=== PATIENT | female | born 1940 | race Caucasian/White ===

== ENCOUNTER 2018-07-25 11:54 | Outpatient (CLI) | payer MEDICARE, OTHER ==
--- NOTE | 2018-07-25 15:30 | XRAY Report ---
Reason: RADICULOPATHY, CERVICAL,FELT POP WHILE EXERCISING Procedure Date: 07/25/2018 Accession Number: [id number] / [id number] Procedure: XR - Cervical Spine Complete CPT Code: FULL RESULT: EXAM: CERVICAL SPINE RADIOGRAPHY EXAM DATE: 07/25/2018 12:48 PM. CLINICAL HISTORY: Cervical radiculopathy, felt pop while exercising. COMPARISONS: None. TECHNIQUE: 5 views. FINDINGS: The examination is degraded by motion in essentially all projections. Alignment: There is straightening of the normal cervical curvature status-post C3-C6 fusion. Alignment of the cervical columns is preserved within the limitations of the plain radiograph series. Bones: The cervical vertebral bodies and posterior elements are well-visualized from the skull base through C7-T1. No fractures or bone lesions. Disks: Normal. Disk heights are maintained. Facets: There are expected degenerative changes in association with effusion with increased degenerative changes at C6-C7 and C2-C3 as expected. Neural Foramina: The neural foramina have bony patency bilaterally. Soft Tissues: Normal. No prevertebral soft tissue swelling. The visualized lung apices are clear. IMPRESSION: C3-C6 fusion with increased degenerative changes at the level above and below fusion. No evidence of listhesis on the limited plain radiographs. If there is high clinical suspicion for cervical injury, recommend CT cervical spine. RADIA
== END 2018-07-25 11:55 | disposition home or self-care (01) ==
LOC: DI 11:54
PROVIDERS: ATTEND Family Medicine
DX: M47.22 Other spondylosis with radiculopathy, cervical region (principal); Z98.1 Arthrodesis status
CPT/HCPCS: 72050

== ENCOUNTER 2019-09-24 08:00 | Outpatient (CLI) | payer MEDICARE, OTHER ==
[2019-09-24 12:59] LABS: ALBUMIN 3.9 g/dL (3.2-5.5); ALBUMIN/GLOBULIN RATIO 1.1 (1.0-2.2); ALKALINE PHOSPHATASE 56 IU/L (42-121); ALT ALANINE AMINOTRANSFERASE < 10 IU/L (10-60); AST ASPARTATE AMINOTRANSFERASE 17 IU/L (10-42); BILIRUBIN,TOTAL 0.5 mg/dL (0.2-1.0); BUN - BLOOD UREA NITROGEN 16 mg/dL (6-20); CALCIUM 10.2 mg/dL (8.5-10.3); CARBON DIOXIDE - CO2 29 mmol/L (21-32); CHLORIDE 105 mmol/L (101-111); CREATININE 1.2 mg/dL (0.4-1.0); GFR - MDRD 43 (>89); GLUCOSE 127 mg/dL (70-100); SODIUM 142 mmol/L (135-145); TOTAL PROTEIN 7.5 g/dL (6.7-8.2)
[2019-09-24 13:00] LABS: BASOPHILS % (AUTO) 0.5 %; EOSINOPHILS # (AUTO) 0.2 10^3/uL (0.0-0.7); HGB - HEMOGLOBIN 13.2 g/dL (12.0-16.0); LYMPHOCYTES # (AUTO) 1.4 10^3/uL (1.5-3.5); LYMPHOCYTES % (AUTO) 20.3 %; MEAN CORPUSCULAR HGB CONC 31.7 g/dL (32.0-36.0); MEAN CORPUSCULAR VOLUME 100.7 fL (81.0-99.0); MEAN PLATELET VOLUME 9.6 fL (7.9-10.8); MONOCYTES # (AUTO) 0.5 10^3/uL (0.0-1.0); MONOCYTES % (AUTO) 6.9 %; NEUTROPHILS # (AUTO) 4.6 10^3/uL (1.5-6.6); PLT - PLATELET COUNT 274 10^3/uL (130-450); RED BLOOD COUNT 4.13 10^6/uL (4.20-5.40); RED CELL DISTRIBUTION WIDTH 13.2 % (12.0-15.0); WHITE BLOOD COUNT 6.7 x10^3/uL (4.8-10.8)
[2019-09-24 13:35] LABS: BILIRUBIN,URINE NEGATIVE (NEGATIVE); GLUCOSE, URINE (UA) NEGATIVE (NEGATIVE); KETONES,URINE (UA) TRACE mg/dL (NEGATIVE); LEUKOCYTE ESTERASE, URINE NEGATIVE (NEGATIVE); NITRITE,URINE NEGATIVE (NEGATIVE); OCCULT BLOOD,URINE TRACE-INTA (NEGATIVE); PROTEIN,URINE NEGATIVE (NEGATIVE); UROBILINOGEN,URINE 0.2 (NORMAL) E.U./dL (NORMAL)
[2019-09-24 13:42] LABS: CLARITY,URINE CLEAR (CLEAR)
[2019-09-24 14:04] LABS: BACTERIA,URINE Moderate /HPF (None Seen); RBC,URINE 0-5 /HPF (0-5); SQUAMOUS EPITHELIAL CELL,UR MOD Squamous (<= Few)
[2019-09-24 14:05] LABS: CASTS, URINE 11-25 Hyaline Casts /LPF
[2019-09-26 12:11] LABS: COMPLEMENT COMPONENT C3C 132 mg/dL (83-193); COMPLEMENT COMPONENT C4C 28 mg/dL (15-57)
== END 2019-09-24 23:59 | disposition home or self-care (01) ==
LOC: LAB.WCP 08:00
PROVIDERS: ATTEND Internal Medicine Rheumatology
DX: R76.8 Other specified abnormal immunological findings in serum (principal); R27.9 Unspecified lack of coordination
CPT/HCPCS: 36415; 80053; 81001; 85025; 85651; 86160

== ENCOUNTER 2020-04-21 15:10 | Outpatient (CLI) | payer MEDICARE, OTHER ==
[2020-04-21 18:41] LABS: BASOPHILS % (AUTO) 0.4 %; EOSINOPHILS # (AUTO) 0.1 10^3/uL (0.0-0.7); EOSINOPHILS % (AUTO) 1.5 %; HGB - HEMOGLOBIN 12.9 g/dL (12.0-16.0); LYMPHOCYTES # (AUTO) 2.1 10^3/uL (1.5-3.5); MEAN CORPUSCULAR HEMOGLOBIN 32.7 pg (27.0-31.0); MEAN CORPUSCULAR HGB CONC 32.3 g/dL (32.0-36.0); MEAN CORPUSCULAR VOLUME 101.3 fL (81.0-99.0); MEAN PLATELET VOLUME 9.6 fL (7.9-10.8); MONOCYTES # (AUTO) 0.5 10^3/uL (0.0-1.0); MONOCYTES % (AUTO) 6.9 %; NEUTROPHILS # (AUTO) 4.5 10^3/uL (1.5-6.6); NEUTROPHILS % (AUTO) 61.8 %; PLT - PLATELET COUNT 301 10^3/uL (130-450); RED BLOOD COUNT 3.95 10^6/uL (4.20-5.40); RED CELL DISTRIBUTION WIDTH 13.2 % (12.0-15.0); WHITE BLOOD COUNT 7.2 x10^3/uL (4.8-10.8)
[2020-04-21 19:14] LABS: ALBUMIN 4.4 g/dL (3.2-5.5); ALBUMIN/GLOBULIN RATIO 1.5 (1.0-2.2); ALKALINE PHOSPHATASE 61 IU/L (42-121); ALT ALANINE AMINOTRANSFERASE < 10 IU/L (10-60); AST ASPARTATE AMINOTRANSFERASE 15 IU/L (10-42); BILIRUBIN,TOTAL 0.6 mg/dL (0.2-1.0); BUN - BLOOD UREA NITROGEN 21 mg/dL (6-20); CALCIUM 9.6 mg/dL (8.5-10.3); CARBON DIOXIDE - CO2 28 mmol/L (21-32); CHLORIDE 101 mmol/L (101-111); CREATININE 1.3 mg/dL (0.4-1.0); GLUCOSE 107 mg/dL (70-100); SODIUM 138 mmol/L (135-145); TOTAL PROTEIN 7.3 g/dL (6.7-8.2)
[2020-04-22 11:27] LABS: BILIRUBIN,URINE NEGATIVE (NEGATIVE); GLUCOSE, URINE (UA) NEGATIVE (NEGATIVE); KETONES,URINE (UA) NEGATIVE (NEGATIVE); LEUKOCYTE ESTERASE, URINE SMALL (NEGATIVE); NITRITE,URINE NEGATIVE (NEGATIVE); OCCULT BLOOD,URINE NEGATIVE (NEGATIVE); PROTEIN,URINE NEGATIVE (NEGATIVE); UROBILINOGEN,URINE 0.2 (NORMAL) E.U./dL (NORMAL)
[2020-04-22 11:29] LABS: CLARITY,URINE CLEAR (CLEAR)
[2020-04-22 11:58] LABS: BACTERIA,URINE Few /HPF (None Seen); CRYSTALS,URINE 11-25 Ca Oxalate /LPF; RBC,URINE 0-5 /HPF (0-5); SQUAMOUS EPITHELIAL CELL,UR FEW Squamous (<= Few)
[2020-04-23 12:06] LABS: DNA (DS) ANTIBODY 28 IU/mL
[2020-04-23 12:49] LABS: COMPLEMENT COMPONENT C3C 137 mg/dL (83-193); COMPLEMENT COMPONENT C4C 28 mg/dL (15-57)
== END 2020-04-21 23:59 | disposition home or self-care (01) ==
LOC: LAB.WCP 15:10
PROVIDERS: ATTEND Internal Medicine Rheumatology
DX: R76.0 Raised antibody titer (principal); M25.50 Pain in unspecified joint
CPT/HCPCS: 36415; 80053; 81001; 85025; 85651; 86160; 86225

== ENCOUNTER 2020-08-25 08:00 | Outpatient (CLI) | payer MEDICARE, OTHER ==
[2020-08-25 18:12] LABS: BASOPHILS % (AUTO) 0.3 %; EOSINOPHILS # (AUTO) 0.1 10^3/uL (0.0-0.7); HGB - HEMOGLOBIN 12.8 g/dL (12.0-16.0); LYMPHOCYTES # (AUTO) 1.5 10^3/uL (1.5-3.5); LYMPHOCYTES % (AUTO) 21.6 %; MEAN CORPUSCULAR HEMOGLOBIN 31.9 pg (27.0-31.0); MEAN CORPUSCULAR HGB CONC 31.2 g/dL (32.0-36.0); MEAN CORPUSCULAR VOLUME 102.2 fL (81.0-99.0); MEAN PLATELET VOLUME 9.6 fL (7.9-10.8); MONOCYTES # (AUTO) 0.5 10^3/uL (0.0-1.0); MONOCYTES % (AUTO) 7.6 %; NEUTROPHILS # (AUTO) 4.7 10^3/uL (1.5-6.6); NEUTROPHILS % (AUTO) 69.1 %; PLT - PLATELET COUNT 276 10^3/uL (130-450); RED BLOOD COUNT 4.01 10^6/uL (4.20-5.40); RED CELL DISTRIBUTION WIDTH 12.8 % (12.0-15.0); WHITE BLOOD COUNT 6.9 x10^3/uL (4.8-10.8)
[2020-08-25 18:20] LABS: CALCIUM 9.6 mg/dL (8.5-10.3); CREATININE 1.3 mg/dL (0.4-1.0)
[2020-08-25 19:05] LABS: BILIRUBIN,URINE NEGATIVE (NEGATIVE); GLUCOSE, URINE (UA) NEGATIVE (NEGATIVE); KETONES,URINE (UA) NEGATIVE (NEGATIVE); LEUKOCYTE ESTERASE, URINE NEGATIVE (NEGATIVE); NITRITE,URINE NEGATIVE (NEGATIVE); OCCULT BLOOD,URINE NEGATIVE (NEGATIVE); PROTEIN,URINE NEGATIVE (NEGATIVE); UROBILINOGEN,URINE 0.2 (NORMAL) E.U./dL (NORMAL)
[2020-08-25 19:29] LABS: CLARITY,URINE CLEAR (CLEAR)
[2020-08-25 19:30] LABS: BACTERIA,URINE None Seen /HPF (None Seen); RBC,URINE None Seen /HPF (0-5); SQUAMOUS EPITHELIAL CELL,UR RARE Squamous (<= Few)
[2020-08-27 11:16] LABS: COMPLEMENT COMPONENT C3C 153 mg/dL (83-193); COMPLEMENT COMPONENT C4C 35 mg/dL (15-57)
== END 2020-08-25 23:59 | disposition home or self-care (01) ==
LOC: LAB.WCP 08:00
PROVIDERS: ATTEND Internal Medicine Rheumatology
DX: R27.9 Unspecified lack of coordination (principal); R76.8 Other specified abnormal immunological findings in serum
CPT/HCPCS: 36415; 80048; 81001; 85025; 85651; 86160

== ENCOUNTER 2021-02-15 18:32 | Outpatient (CLI) | payer MEDICARE, OTHER ==
--- NOTE | 2021-02-15 19:49 | Ultrasound Report ---
PROCEDURE: Duplex Ext Veins Bilateral INDICATIONS: PHUC AJ TECHNIQUE: Real-time imaging, as well as color and pulse Doppler interrogation, were performed of the deep veins of both legs from the inguinal ligament to the popliteal fossa. COMPARISON: None FINDINGS: The deep veins are normally compressible, and free of intraluminal thrombus. Color and pu lse Doppler demonstrate normal phasic intravascular flow. There is normal augmentation response to d istal compression maneuver. There is a 4.6 x 1 x 3.8 cm fluid collection along anterior aspect of right knee joint. 1.3 x 0.9 x 4 .3 cm fluid collection is noted in left popliteal fossa. IMPRESSION: 1. No evidence of DVT in visualized bilateral lower extremity veins. 2. Fluid collection seen in anterior aspect of right knee joint which may represent prepatellar bursi tis. 3. Suggestion of a small left popliteal cyst as above. Reviewed by: James Ho MD on 02/15/2021 7:47 PM PDT Approved by: James Ho MD on 02/15/2021 7:47 PM PDT Station ID: [id number]
== END 2021-02-15 18:33 | disposition home or self-care (01) ==
LOC: DI 18:32
PROVIDERS: ATTEND Internal Medicine Rheumatology
DX: M79.604 Pain in right leg (principal); M79.605 Pain in left leg
CPT/HCPCS: 93970

== ENCOUNTER 2022-09-19 13:11 | Outpatient (CLI) | payer MEDICARE, OTHER | END 2022-09-19 23:59 | disposition critical access hospital (66) | LOC: EMS 13:11 | DX: R07.9 Chest pain, unspecified (principal); M54.2 Cervicalgia; M54.9 Dorsalgia, unspecified; M79.602 Pain in left arm | CPT/HCPCS: A0425; A0427 ==

== ENCOUNTER 2022-09-19 13:27 | Emergency (ER) | payer MEDICARE, OTHER ==
--- NOTE | 2022-09-19 13:35 | ED Physician Documentation ---
PD HPI CHEST PAIN - Stated complaint Stated Complaint: CHEST PAIN - History obtained from History obtained from: Patient - History of Present Illness Timing - onset: Yesterday (onset about 30 hours ago and has hd pain to some degree since.) Timing - duration: Days (10/16) Timing - details: Gradual onset, Still present, Waxing and waning. No: Intermittant Quality: Aching, Pain Location: Right chest, Upper back Radiation: No: Neck, Back Improved by: Rest Worsened by: Movement. No: Inspiration, Eating, Palpation Associated symptoms: No: Shortness of air, Diaphoresis, Nausea Similar symptoms before: Has not had sx before Review of Systems Constitutional: denies: Fever, Chills Nose: denies: Rhinorrhea / runny nose, Congestion Throat: denies: Sore throat Respiratory: denies: Cough GI: denies: Abdominal Pain, Nausea, Vomiting, Diarrhea Skin: denies: Rash, Lesions PD PAST MEDICAL HISTORY - Past Medical History Cardiovascular: Hypertension, High cholesterol, Angina, [place] Respiratory: Asthma, Sleep apnea, CPAP use Endocrine/Autoimmune: None, Type 2 diabetes, HyPOthyroidism GI: GERD : Frequency HEENT: Chronic vision loss Psych: Depression, Anxiety, Panic attacks Musculoskeletal: Osteoarthritis Derm: None - Past Surgical History Past Surgical History: Yes General: Cholecystectomy Ortho: Other HEENT: Cataracts, Tonsil/Adenoidectomy - Present Medications Home Medications: Ambulatory Orders Medication Instructions Recorded Confirmed Aspirin Chewable [[place] 81 mg PO DAILY 01/03/14 01/03/14 Aspirin] Levothyroxine Sodium [Synthroid] 88 mcg PO 01/03/14 01/03/14 Lisinopril 20 mg PO 01/03/14 01/03/14 Rosuvastatin Calcium [Crestor] 10 mg PO 01/03/14 01/03/14 Bupropion HCl [Bupropion HCl Sr] 150 mg PO BID 01/04/14 01/04/14 - Allergies Allergies/Adverse Reactions: Allergies Allergy/AdvReac Type Severity Reaction Status Date / Time Sulfa (Sulfonamide AdvReac Unknown Rash Verified 09/19/22 13:39 Antibiotics) - Social History Does the pt smoke?: No Smoking Status: Former smoker Does the pt drink ETOH?: No Does the pt have substance abuse?: No - Immunizations Immunizations are current?: Yes - POLST Patient has POLST: No PD ED PE NORMAL - Vitals Vital signs reviewed: Yes - General General: Alert and oriented X 3 - HEENT HEENT: Pharynx benign - Neck Neck: Supple, no meningeal sign, No adenopathy - Cardiac Cardiac: RRR, No murmur, Other (chest tender in right pectoral area. back in trapezius muscles. no rash nor sores. ) - Respiratory Respiratory: Clear bilaterally - Abdomen Abdomen: Soft, Non tender - Derm Derm: Normal color, Warm and dry - Extremities Extremities: No edema, No calf tenderness / cord - Neuro Neuro: Alert and oriented X 3, No motor deficit, Normal speech Results - Vitals Vitals: Oxygen O2 Source Room air - EKG (time done) 14;27 Rate: Rate (enter#) (86) Rhythm: NSR [place]: Normal Intervals: Normal [place] QRS: Normal Ischemia: Normal ST segments. No: ST elevation c/w ischemia, ST depression - Labs Labs: Laboratory Tests 09/19/22 09/19/22 09/19/22 13:46 13:46 13:46 WBC 7.3 RBC 4.40 Hgb 13.6 Hct 42.1 MCV 95.7 MCH 30.9 MCHC 32.3 RDW 12.6 Plt Count 256 MPV 8.9 Neut # (Auto) 5.1 Lymph # (Auto) 1.5 [place] # (Auto) 0.6 Eos # (Auto) 0.1 Baso # (Auto) 0.0 Absolute Nucleated RBC 0.00 Nucleated RBC % 0.0 Sodium 137 Potassium 4.1 Chloride 97 L Carbon Dioxide 26 Anion Gap 14.0 H BUN 21 H Creatinine 1.3 H Estimated GFR (MDRD) 39 L Glucose 128 H Calcium 9.6 Total Bilirubin 0.4 AST 18 ALT < 10 L Alkaline Phosphatase 68 Troponin I High Sens 15.9 H* Total Protein 7.4 Albumin 4.0 Globulin 3.4 Albumin/Globulin Ratio 1.2 Lipase 33 Nasal Adenovirus (PCR) Nasal B. parapertussis DNA (PCR) Nasal Coronavir 229E PCR Nasal Coronavir HKU1 PCR Nasal Coronavir NL63 PCR Nasal Coronavir OC43 PCR Nasal Enterovir/Rhinovir PCR Nasal Influenza B PCR Nasal Influenza A PCR Nasal Parainfluen 1 PCR Nasal Parainfluen 2 PCR Nasal Parainfluen 3 PCR Nasal Parainfluen 4 PCR Nasal RSV (PCR) Nasal B.pertussis DNA PCR Nasal C.pneumoniae (PCR) Kush Human Metapneumo PCR Nasal M.pneumoniae (PCR) Nasal SARS-CoV-2 (PCR) 09/19/22 15:20 WBC RBC Hgb Hct MCV MCH MCHC RDW Plt Count MPV Neut # (Auto) Lymph # (Auto) [place] # (Auto) Eos # (Auto) Baso # (Auto) Absolute Nucleated RBC Nucleated RBC % Sodium Potassium Chloride Carbon Dioxide Anion Gap BUN Creatinine Estimated GFR (MDRD) Glucose Calcium Total Bilirubin AST ALT Alkaline Phosphatase Troponin I High Sens Total Protein Albumin Globulin Albumin/Globulin Ratio Lipase Nasal Adenovirus (PCR) NOT DETECTED Nasal B. parapertussis DNA (PCR) NOT DETECTED Nasal Coronavir 229E PCR NOT DETECTED Nasal Coronavir HKU1 PCR NOT DETECTED Nasal Coronavir NL63 PCR NOT DETECTED Nasal Coronavir OC43 PCR NOT DETECTED Nasal Enterovir/Rhinovir PCR NOT DETECTED Nasal Influenza B PCR NOT DETECTED Nasal Influenza A PCR NOT DETECTED Nasal Parainfluen 1 PCR NOT DETECTED Nasal Parainfluen 2 PCR NOT DETECTED Nasal Parainfluen 3 PCR NOT DETECTED Nasal Parainfluen 4 PCR NOT DETECTED Nasal RSV (PCR) NOT DETECTED Nasal B.pertussis DNA PCR NOT DETECTED Nasal C.pneumoniae (PCR) NOT DETECTED Kush Human Metapneumo PCR NOT DETECTED Nasal M.pneumoniae (PCR) NOT DETECTED Nasal SARS-CoV-2 (PCR) NOT DETECTED - Rads (name of study) chest Radiology: Prelim report reviewed (no acute process), See rad report PD MEDICAL DECISION MAKING - ED course Complexity details: reviewed results, considered differential (seems more like muscle aches of chest and upper back. ), d/w patient Departure - Departure Disposition: 01 Home, Self Care Clinical Impression: Myalgia Chest pain Qualifiers: Chest pain type: precordial pain Qualified Code(s): R07.2 - Precordial pain Condition: Stable Record reviewed to determine appropriate education?: Yes Instructions: ED Chest Pain Atypical Unkn Cause Comments: Your EKG, chest x-ray, blood test including troponin which looks for heart muscle injury, are all normal. No signs of heart attack, anemia, electrolyte problems, pneumonia, heart failure. We did do a viral panel screening test as your symptoms may be early signs of a flulike illness. That will result in a couple of hours and we can call you with the results. Meanwhile I would suggest using medication such as ibuprofen or naproxen 2-3 times daily with food for the next 3 to 5 days. Add Tylenol if needed for aches and pains. See if any symptoms evolve over the next couple of days such as cough fever chills that may make it more evident. Follow-up with your primary care if persistent pains or trouble breathing not improved over the next 3 to 5 days. Return sooner if worse. Discharge Date/Time: 09/19/22 16:40
[2022-09-19 13:52] LABS: BASOPHILS % (AUTO) 0.4 %; EOSINOPHILS # (AUTO) 0.1 10^3/uL (0.0-0.7); EOSINOPHILS % (AUTO) 1.6 %; HCT - HEMATOCRIT 42.1 % (37.0-47.0); HGB - HEMOGLOBIN 13.6 g/dL (12.0-16.0); LYMPHOCYTES # (AUTO) 1.5 10^3/uL (1.5-3.5); MEAN CORPUSCULAR HEMOGLOBIN 30.9 pg (27.0-31.0); MEAN CORPUSCULAR HGB CONC 32.3 g/dL (32.0-36.0); MEAN CORPUSCULAR VOLUME 95.7 fL (81.0-99.0); MEAN PLATELET VOLUME 8.9 fL (7.9-10.8); MONOCYTES # (AUTO) 0.6 10^3/uL (0.0-1.0); MONOCYTES % (AUTO) 7.7 %; NEUTROPHILS # (AUTO) 5.1 10^3/uL (1.5-6.6); NEUTROPHILS % (AUTO) 69.8 %; PLT - PLATELET COUNT 256 10^3/uL (130-450); RED CELL DISTRIBUTION WIDTH 12.6 % (12.0-15.0); WHITE BLOOD COUNT 7.3 x10^3/uL (4.8-10.8)
--- NOTE | 2022-09-19 13:59 | XRAY Report ---
PROCEDURE: Chest 1 View X-Ray INDICATIONS: Chest pain TECHNIQUE: One view of the chest was acquired. COMPARISON: None. FINDINGS: Surgical changes and devices: None. Lungs and pleura: No pleural effusions or pneumothorax. Lungs are clear. Mediastinum: Mediastinal contours appear normal. Heart size is enlarged. Bones and chest wall: No suspicious bony lesions. Overlying soft tissues appear unremarkable. Dege nerative changes of the left shoulder. IMPRESSION: No acute cardiopulmonary abnormality. Reviewed by: Petr Holden on 09/19/2022 1:58 PM [facility] Approved by: Petr Holden on 09/19/2022 1:58 PM [facility] Station ID: [id number]
[2022-09-19] MEDS ORDERED: KETOROLAC 15 MG/ML VIAL IVP STA (14:11)
[2022-09-19] MEDS ORDERED: MAG HYDROX/AL HYDROX/SIMETH 30 ML UDC PO STA (14:11)
[2022-09-19 14:13] LABS: ALBUMIN/GLOBULIN RATIO 1.2 (1.0-2.2); ALKALINE PHOSPHATASE 68 IU/L (42-121); ALT ALANINE AMINOTRANSFERASE < 10 IU/L (10-60); AST ASPARTATE AMINOTRANSFERASE 18 IU/L (10-42); BILIRUBIN,TOTAL 0.4 mg/dL (0.2-1.0); BUN - BLOOD UREA NITROGEN 21 mg/dL (6-20); CALCIUM 9.6 mg/dL (8.5-10.3); CARBON DIOXIDE - CO2 26 mmol/L (21-32); CHLORIDE 97 mmol/L (101-111); CREATININE 1.3 mg/dL (0.4-1.0); GFR - MDRD 39 (>89); GLUCOSE 128 mg/dL (70-100); LIPASE 33 U/L (22-51); POTASSIUM 4.1 mmol/L (3.5-5.0); SODIUM 137 mmol/L (135-145); TOTAL PROTEIN 7.4 g/dL (6.7-8.2)
[2022-09-19] MEDS ORDERED: HYDROmorphone 0.5 MG/0.5 ML SYRINGE IVP STA (15:27)
[2022-09-19 16:36] LABS: B. PARAPERTUSSIS- RESP PCR PAN NOT DETECTED; B. PERTUSSIS- RESP PCR PANEL NOT DETECTED; C. PNEUMONIAE- RESP PCR PANEL NOT DETECTED; CORONAVIRUS 229E-RESP PCR NOT DETECTED; CORONAVIRUS HKU1-RESP PCR NOT DETECTED; CORONAVIRUS NL63-RESP PCR NOT DETECTED; CORONAVIRUS OC43-RESP PCR NOT DETECTED; HUMAN METAPNEUMOVIRUS NOT DETECTED; INFLUENZA A- RESP PCR PANEL NOT DETECTED; INFLUENZA B - RESP PCR PANEL NOT DETECTED; M. PNEUMONIAE- RESP PCR PANEL NOT DETECTED; PARAINFLUENZA VIRUS 1 NOT DETECTED; PARAINFLUENZA VIRUS 2 NOT DETECTED; PARAINFLUENZA VIRUS 3 NOT DETECTED; PARAINFLUENZA VIRUS 4 NOT DETECTED; RHINOVIRUS/ENTEROVIRUS NOT DETECTED; RSV- RESP PCR PANEL NOT DETECTED; SARS-CoV-2 -RESP PCR PANEL NOT DETECTED
[2022-09-19 16:40] VITALS: BP 148/84
== END 2022-09-19 16:40 | disposition home or self-care (01) ==
LOC: EDUNIT# → ED 13:27
DX: R07.2 Precordial pain (principal); M79.10 Myalgia, unspecified site; Z87.891 Personal history of nicotine dependence; Z20.822 Contact with and (suspected) exposure to COVID-19
CPT/HCPCS: 36415; 71045; 80053; 83690; 84484; 85025; 87633; 93005; 96374; 96375; 99284; A9270; J1170

== ENCOUNTER 2022-10-30 12:35 | Outpatient (CLI) | payer MEDICARE, OTHER ==
--- NOTE | 2022-10-30 15:28 | DEXA Report ---
PROCEDURE: Dexa Spine and/or Hip INDICATIONS: POST MENOPAUSAL TECHNIQUE: Dual energy x-ray absorptiometry (DXA) was performed on a [employer] System. Regions measur ed are the AP Spine, femoral neck, and if needed forearm. COMPARISON: None. FINDINGS: Lumbar Spine: Bone Mineral Density 1.13 g/cm/cm,T score -0.5, Spinal curvature is present. Left Femoral Neck: Bone Mineral Density 0.85 g/cm/cm, T score -1.3, Left Hip: Bone Mineral Density 1.03 g/cm/cm,T score 0.1, (T score greater or equal to -1.0: NORMAL) (T score from -1.1 to -2.4: OSTEOPENIA) (T score less than or equal to -2.5 to: OSTEOPOROSIS) Impression: Osteopenia of the left femoral neck. Normal bone mineral density in the lumbar spine and left hip as a whole. Patients with diagnosis of osteoporosis or osteopenia should have regular bone mineral density assess ment. For those eligible for Medicare, routine testing is allowed once every 2 years. Testing frequ ency can be increased for patients who have rapidly progressing disease or for those who are receivin g medical therapy to restore bone mass. Reviewed by: Darrell Davenport MD on 10/30/2022 3:27 PM PST Approved by: Darrell Davenport MD on 10/30/2022 3:27 PM PST Station ID: [id number]
== END 2022-10-30 12:36 | disposition home or self-care (01) ==
LOC: DI 12:35
PROVIDERS: ATTEND Physician Assistant
DX: M85.88 Other specified disorders of bone density and structure, other site (principal)

== ENCOUNTER 2023-03-30 13:44 | Outpatient (CLI) | payer MEDICARE, OTHER ==
--- NOTE | 2023-03-30 14:45 | SLEEP CARE CONSULTATION ---
Information from patient questionnaire entered by Rhona Syed. I have reviewed and concur with the information entered by Rhona Syed. This document represents the service I personally performed and the decisions made by me, Verona Sanchez ARNP. History of Present Illness Service Date and Time: 03/30/2023 1344 Reason for Visit: New patient Chief Complaint: reports: Unrefreshed sleep, Snoring, Observed pauses in breathing, Frequent awakenings at night, Other (update supplies) Date of Onset: 20+ years Usual bedtime: 10 PM Time it takes to fall asleep: 15-40 mins Snores at night: Yes Observed to quit breathing while asleep: Yes Number of times waking at night: 3-4 Reasons for waking at night: reports: Bathroom Toss, Turn, or Twitch while sleeping: Yes Recalls having dreams: Yes Usually gets out of bed at: 0630 Feels refreshed in the morning: No Morning headache: No Sleepy or fatigued during the day: Yes Ever fallen asleep while driving: No Takes day naps: No Prior sleep studies: Yes Year and Where: [facility] [place] ?date Additional HPI information: ANISA CADENA was previously diagnosed to have unknown, AHI unknown, sleep apnea-hypopnea syndrome and comes in today for BIPAP therapy. She has a Dreamstation BiPAP that is on the [employer] recall and has received a letter asking for prescription data from her doctor to obtain her replacement. She wants to get a replacement so she can restart use of her BIPAP. - Parasomnia Symptoms Ever been unable to move upon waking from sleep: No Walks in sleep: Yes Talks in sleep: Yes Ever acted out dreams in sleep: No Ever felt weak in the knees when startled or emotional: No Bothered by creepy, crawly, restless sensations in legs: Yes Problems with memory or concentration: Yes CPAP Compliance Data - Data Reviewed with Patient Average duration of nightly device use: 7 hours 7 mins Compliance rate %: 69.2 (144/185 days used; dates 04-23-2021 to10-24-2021) Current pressure setting (cmH2O): 9/5 with 4 pressure support Average residual AHI: 3.2 Central apnea: 0.2 Obstructive apnea: 1.1 Hypopnea: 1.9 Average large leak: 8 mins 59 secs Compliance data discussion: She has a recalled Neal Dreamstation BiPAP. She was using a Dreamwear nasal cushion. She does not remember who she was getting supplies from and has moved too. Subjective Patient concerns: denies: aerophagia, mask discomfort, air blowing in eyes, mask leak noise, condensation in mask/hose, nasal congestion, dry mouth, nose, throat, epistaxis Observed to snore while using device: No Current pressure setting perceived as: comfortable On therapy, patient: reports: sleeping better, awakening more refreshed, being more awake and alert during the day, more rested overall. denies: drowsiness while driving Initial [place] Sleepiness Scale score: 5 (03/30/2023) Past Medical History Past Medical History: reports: Hypertension, Claustrophobia, Diabetes, Arthritis, Anxiety, Depression, Other (Parkinson's) Social History The patient's occupation is a RE. Patient is / and lives in . Have you smoked in the past 12 months: No Alcohol use: No Caffeine use: Yes Caffeine amount and frequency: 1 cup coffee at lunch Family History Family history of sleep disordered breathing: No Allergies and Home Medications Known drug allergies: Yes (sulfa, -statins, amoxicillin) Drug allergies reviewed: Yes Home medication list reviewed: Yes Allergy and home medication list: Allergies Sulfa (Sulfonamide Antibiotics) Adverse Reaction (Unknown, Verified 03/29/23 20:22) Rash Medications: Carbidopa-Levodopa 25-100 mg Bupropion Synthroid new blood pressure medication, don't know name Review of Systems Weight gain over past 5 years: 25 Cardiovascular: reports: high blood pressure, leg or foot swelling Respiratory: denies: shortness of breath Gastrointestinal: reports: difficulty swallowing (had barium swallow test last week) Urinary: reports: frequency Neurological: reports: disorientation, gait or balance problems. denies: headaches Psychiatric: reports: anxiety, depression Ear/Nose/Throat: reports: sinus problems, dry mouth/throat, hoarseness, tonsillectomy, wisdom teeth removed Endocrine: reports: thyroid disease, sluggishness Musculoskeletal: reports: joint pain, neck pain, back pain, mobility problems Immunologic: reports: sneezing, rash Physical Exam Vital signs obtained and entered by: Verona Matta NP Blood Pressure: 173/95 Cuff size: wrist (right) Heart Rate: 84 O2 Saturation: 100 Height: 5 ft 1 in Weight: 172 lb 12.8 oz Body Mass Index: 32.6 BMI Classification: Obese Heart: regular rate and rhythm Lungs: clear bilaterally Impression and Plan 1. Obstructive Sleep Apnea-Hypopnea Syndrome, unknown, with no treatment compliance and good apnea control. On BIPAP therapy, the patient has better sleep quality and is more rested overall. Patient has been unable to use her BiPAP because it is on the recall and she did not feel comfortable using it. The last time she used it was at the beginning of 2021. She has received some information from [employer] requesting an updated prescription from her provider and other information needed to get her a new device. We will try to facilitate getting her a new device through [employer] since she is not eligible for new one for 2 more years. We are also trying to get a copy of her last sleep study to verify her diagnosis and severity. If we are unable to do this I will have her do a sleep study to verify. She voiced understanding and agreement with this plan of care. Patient's apnea severity and rationale for treatment to reduce apnea, improve sleep quality and reduce cardiovascular and cerebrovascular events was reviewed. I also reviewed the benefit of consistent device use of BIPAP for hypertension, diabetes, depression/anxiety and Parkinson's disease. 2. Elevated blood pressure in patient with hypertension. Her blood pressure was elevated at 173/95 in the office today. She states it has been high and she is waiting on new medication to come in the mail prescribed by her primary provider. She denied shortness of breath, chest pain, headaches or dizziness. She is feeling well. * Continue BIPAP pressure at 9/5 cmH2O with 4 cmH2O pressure support * Obtain records of last sleep study; order PSG/HST if unable to obtain the records * Transfer DME * Update prescription for supplies * Notify me if snoring with mask or feeling that the pressure is too much or too little * Attempt to lose weight * Call this office if any problems using BIPAP * Return for follow up once she has a replaced machine or after sleep study if needed, or sooner if concerns arise Counseling Topics: Weight loss health impact Prescriptions: Device supplies Visit Type: In Office Time Spent with Patient (minutes): 44 Provider Statement: I spent 100% of the Face to Face Visit with the patient with greater than 50% spent counseling the patient and coordination of care.
[2023-03-30 14:47] VITALS: BP 173/95
== END 2023-03-30 13:45 | disposition home or self-care (01) ==
LOC: SC 13:44
PROVIDERS: ATTEND Nurse Practitioner Family
DX: G47.33 Obstructive sleep apnea (adult) (pediatric) (principal); I10 Essential (primary) hypertension; E66.9 Obesity, unspecified; Z68.32 Body mass index [BMI] 32.0-32.9, adult
CPT/HCPCS: 99203; G0463; 99212

== ENCOUNTER 2023-12-06 13:16 | Outpatient (CLI) | payer MEDICARE, OTHER ==
--- NOTE | 2023-12-06 16:35 | XRAY Report ---
PROCEDURE: Chest 2V INDICATIONS: SHORTNESS OF BREATH TECHNIQUE: 2 views of the chest were acquired. COMPARISON: Radiographs 09/19/2022. FINDINGS: Surgical changes and devices: Right upper quadrant cholecystectomy clips. Lungs and pleura: No pleural effusions or pneumothorax. Lungs are clear. Mediastinum: Mediastinal contours appear normal. Heart size is normal. Bones and chest wall: Scoliotic curvature is seen in the spine. IMPRESSION: No acute cardiopulmonary process. Reviewed by: Sourav Kimbrough MD on 12/06/2023 4:34 PM PST Approved by: Sourav Kimbrough MD on 12/06/2023 4:34 PM PST Station ID: [id number]
== END 2023-12-06 13:17 | disposition home or self-care (01) ==
LOC: DI.N 13:16
PROVIDERS: ATTEND Physician Assistant
DX: R06.02 Shortness of breath (principal)

== ENCOUNTER 2023-12-14 14:23 | Outpatient (CLI) | payer MEDICARE, OTHER ==
--- NOTE | 2023-12-14 14:48 | Sleep Patient Instructions ---
Sleep Center Visit Summary - Patient Visit Information Reason for Visit: Annual Followup - Patient Instructions Additional Instructions: You will be completing a sleep study, either an in-lab polysomnography (PSG) or home sleep study (HST). You will follow-up in the sleep care office after the sleep study is completed to hear the results and talk about therapy, if needed. You will be called by our office staff to schedule this appointment, but you may contact us with any questions. - Clinic Information Contact: [facility] [address] [place] [address] [email or web address] T: [phone]
--- NOTE | 2023-12-14 14:56 | SLEEP CARE CONSULTATION ---
Information from patient questionnaire entered by Rhona Syed. I have reviewed and concur with the information entered by Rhona Syed. This document represents the service I personally performed and the decisions made by me, Verona Sanchez ARNP. History of Present Illness Service Date and Time: 12/14/2023 1423 Previous diagnosis: Mild, Obstructive Sleep Apnea-Hypopnea Syndrome AHI: 7.9 (in 08/13/2012) Reason for follow up: other (LAST SEEN 03/2023 NEVER GOT MACHINE) Equipment type: BiPAP (9/5 cmH2O with 4 cmH2O pressure support for last settings) Mask style: Nasal Prior sleep studies: Yes Year and Where: [facility] ?date HPI additional information: ANISA CADENA was diagnosed to have mild, AHI 7.9, obstructive sleep apnea- hypopnea syndrome and returned today for BIPAP therapy annual follow-up. Sleep Study - Results Prior sleep studies: Yes Year and Where: [facility] ?date CPAP Compliance Data Compliance data discussion: Currently not using her BiPAP because it has been on recall. Subjective Initial [place] Sleepiness Scale score: 5 (03/30/2023) Current [place] Sleepiness Scale score: 7 (12/14/23) Allergies and Home Medications Known drug allergies: Yes (as listed) Drug allergies reviewed: Yes Home medication list reviewed: Yes (no changes) Allergy and home medication list: Allergies amoxicillin Allergy (Verified 12/12/23 12:08) Hives [id number]-MqD Reductase Inhibitor Allergy (Verified 12/12/23 12:08) Hives Sulfa (Sulfonamide Antibiotics) Adverse Reaction (Unknown, Verified 12/12/23 12:08) Rash Review of Systems Review of systems same as previous: Yes (NO CHANGE) Physical Exam Vital signs obtained and entered by: RHONA Lawler MA Blood Pressure: 146/82 (LEFT ARM) Cuff size: regular Heart Rate: 84 O2 Saturation: 98 Height: 5 ft 1 in Weight: 173 lb 9.6 oz Body Mass Index: 32.8 BMI Classification: Obese Impression and Plan 1. Obstructive Sleep Apnea-Hypopnea Syndrome, mild. Patient did receive a replacement device from [employer] but she was only sent part of the machine. She did not get a water chamber or electrical cord. She has not been able to resolve getting the rest of the machine. On BiPAP therapy, the patient has better sleep quality and is more rested overall. She has had a recalled BiPAP and is not able to use it. She recently had a older model of the Neal machines and nothing is interchangeable with this Dreamstation. After some discussion, she has not been using her machine for 1 to 2 years now and her last sleep study was done back in 2011. I think it would be advisable to get a new baseline so that we know what would be options for her to control her sleep apnea. She is hoping to see other options besides the BiPAP machine. I will order a new sleep study and we will follow-up after her sleep study to discuss the options that she will have for treatment. She voiced understanding and agreement with this plan of care. Patient's apnea severity and rationale for treatment to reduce apnea, improve sleep quality and reduce cardiovascular and cerebrovascular events was reviewed. I also reviewed the benefit of consistent device use of BIPAP for hypertension, diabetes, depression/anxiety. 2. Obesity, unspecified. Currently patients BMI is 32.8. Obesity increases the risk of apnea, BiPAP pressure requirements and overall health risks especially cardiovascular and diabetes. Thus patient is advised to lose weight. * Schedule polysomnography to obtain new baseline for her sleep apnea. * Avoid long distance driving or driving when feeling sleepy. * Avoid alcohol, sedative and muscle relaxant around bedtime. * Attempt to lose weight. * Review instructions provided by trained office staff on how to prepare for the sleep study. * Return for follow-up after sleep study completed. Counseling Topics: Weight loss health impact Follow up with Sleep Care in: other (after sleep study) Plan: PSG Visit Type: In Office Time Spent with Patient (minutes): 25 Provider Statement: I spent 100% of the Face to Face Visit with the patient with greater than 50% spent counseling the patient and coordination of care.
[2023-12-14 15:12] VITALS: BP 146/82; O2SAT 98
== END 2023-12-14 14:24 | disposition home or self-care (01) ==
LOC: SC 14:23
PROVIDERS: ATTEND Nurse Practitioner Family
DX: G47.33 Obstructive sleep apnea (adult) (pediatric) (principal); E66.9 Obesity, unspecified; Z68.32 Body mass index [BMI] 32.0-32.9, adult
CPT/HCPCS: 99213; G0463; 99212

== ENCOUNTER 2024-01-06 19:36 | Outpatient (CLI) | payer MEDICARE, OTHER | END 2024-01-06 19:37 | disposition home or self-care (01) | LOC: SC 19:36 | PROVIDERS: ATTEND Nurse Practitioner Family | DX: G47.33 Obstructive sleep apnea (adult) (pediatric) (principal); E11.9 Type 2 diabetes mellitus without complications; F32.A Depression, unspecified; I10 Essential (primary) hypertension | CPT/HCPCS: 95810 ==

== ENCOUNTER 2024-01-15 15:16 | Outpatient (CLI) | payer MEDICARE, OTHER ==
--- NOTE | 2024-01-15 16:27 | Sleep Patient Instructions ---
Sleep Center Visit Summary - Patient Visit Information Reason for Visit: Sleep study follow-up - Patient Instructions Additional Instructions: You were here for follow up of recent sleep study that you completed which showed mild obstructive sleep apnea. You will be continued on BiPAP therapy with pressure at 9/5 cmH2O. I have ordered a new BiPAP and they company you choose for your supplies and machine should be reaching out to you to get it set up. Please call us once you get the machine at home to set up a compliance followup for a month after using your new machine. You should follow up with sleep care one month after getting machine. You may contact us sooner for any questions or concerns. - Clinic Information Contact: [facility] [address] [place] [address] [email or web address] T: [phone]
--- NOTE | 2024-01-15 16:33 | SLEEP CARE CONSULTATION ---
Information from patient questionnaire entered by Rhona Syed. I have reviewed and concur with the information entered by Rhona Syed. This document represents the service I personally performed and the decisions made by , Verona Sanchez ARNP. History of Present Illness Service Date and Time: 01/15/2024 1516 Initial [place] Sleepiness Scale score: 5 (03/30/2023) Current [place] Sleepiness Scale score: 8 Additional HPI information: ANISA CADENA returns for follow up and results of the recently performed polysomnography. The sleep study showed mild obstructive sleep apnea with an average AHI of 8.7 and caty oxygen saturation of 89%. I explained the pathophysiology behind obstructive sleep apnea. We then spent quite a bit of time discussing different treatment options. For mild obstructive sleep apnea, surgery and oral appliance are alternatives to nasal CPAP therapy but in moderate or severe cases, nasal CPAP is the most effective and reliable treatment. Because apnea is primarily in non-supine position, then positional management therapy could be effective. Methods discussed. I reviewed the impact of weight changes on sleep apnea and strongly recommended losing weight. After some discussion, the patient would like to continue with the BiPAP therapy set at 9/5 cmH2O with 4 cmH20 pressure support. Patient does not drink alcohol. Patient was cautioned about risks of drowsy driving until sleepiness symptoms resolve. Patient denies drowsy driving. Sleep Study - Results Type of Sleep Study: Polysomnography (COMPLETED 01/06/24) Prior sleep studies: Yes Year and Where: [facility] ?date Polysomnography/Home Sleep Study results: IMPRESSION: The quality of the study is good. The patient had reduced sleep efficiency due to prolonged awakenings in the middle of the night. The sleep architecture was abnormal for sleep fragmentation and reduced amount of time spent in REM and slow wave sleep (N3). Respiratory monitoring showed mild obstructive sleep apnea-hypopnea (AHI = 8.7) associated with frequent arousals, oxyhemoglobin desaturation and minimal hypoxia (caty oxygen saturation of 89%). The patient slept mostly in non-supine positions (supine AHI = 2.9; non-supine = 10.49). Snore was light in intensity. There was no significant periodic leg movement of sleep. Cardiac rhythm was normal sinus rhythm without significant arrhythmia. No abnormal behavior (parasomnia) observed during the night. Allergies and Home Medications Known drug allergies: Yes (as listed) Drug allergies reviewed: Yes Home medication list reviewed: Yes (no changes) Allergy and home medication list: Allergies amoxicillin Allergy (Verified 12/14/23 14:26) Hives Ihosfup-BSX-BlX Reductase Inhibitor Allergy (Verified 12/14/23 14:26) Hives Sulfa (Sulfonamide Antibiotics) Adverse Reaction (Unknown, Verified 12/14/23 14:26) Rash Review of Systems Review of systems same as previous: Yes (no changes) Physical Exam Vital signs obtained and entered by: VERONA LENNON Blood Pressure: 188/101 (initial 193/97) Cuff size: regular (left arm) Heart Rate: 78 O2 Saturation: 100 Height: 5 ft 1 in Weight: 173 lb (per pt report, unable to step on scale) Body Mass Index: 32.6 BMI Classification: Obese Impression and Plan 1. Obstructive Sleep Apnea-Hypopnea Syndrome, mild, with lowest oxygen saturation of 89%. Obviously this is the cause of the patients symptoms of unrefreshed sleep, and excessive daytime sleepiness. Positive pressure therapy could benefit hypertension, diabetes, depression and anxiety. As mentioned above, the patient will be continued on BiPAP therapy with pressure set at 9/5 cmH2O with 4 cmH2O pressure support. Compliance guidelines also reviewed. A copy of compliance guidelines will be given for reference at check out. Because the apnea is more severe non-supine, I instructed to avoid sleeping non-supine using pillow positioning until able to re-start BiPAP use. 2. Elevated blood pressure in patient with hypertension. Initial blood pressure measurement was 193/97 and a second check was noted to be 188/101. She said she was feeling shaky and a little dizzy but says she is having a Parkinson's flare. After sitting in our office for about an hour, she said it has calmed down and she is feeling better. I advised her to seek evaluation if her symptoms persist or she does not feel safe driving home. She voiced understanding and agreement. She says her primary doctor is aware of her blood pressure being elevated right now, that it will often go this high occasionally. She says she will seek help if needed. 3. Obesity, unspecified. Currently patients BMI is 32.6. Obesity increases the risk of apnea, BiPAP pressure requirements and overall health risks especially cardiovascular and diabetes. Thus patient is advised to lose weight. * Continue BiPAP pressure at 9/5 cmH2O with 4 cmH2O pressure support * Transfer DME * Update machine * Update supplies * Notify me if snoring with mask or feeling that the pressure is too much or too little * Attempt to lose weight * Call this office if any problems using BiPAP * Return for follow up one month after obtaining new device, or sooner if concerns arise Counseling Topics: Weight loss health impact Prescriptions: BiPAP, Device supplies Follow up with Sleep Care in: other (compliance followup) Follow up with: PCP Follow up recommended for: High blood pressure Visit Type: In Office Time Spent with Patient (minutes): 24 Provider Statement: I spent 100% of the Face to Face Visit with the patient with greater than 50% spent counseling the patient and coordination of care.
[2024-01-15 16:35] VITALS: BP 188/101; O2SAT 100
== END 2024-01-15 15:17 | disposition home or self-care (01) ==
LOC: SC 15:16
PROVIDERS: ATTEND Nurse Practitioner Family
DX: G47.33 Obstructive sleep apnea (adult) (pediatric) (principal); R03.0 Elevated blood-pressure reading, without diagnosis of hypertension; E66.9 Obesity, unspecified; Z68.32 Body mass index [BMI] 32.0-32.9, adult
CPT/HCPCS: 99213; G0463; 99212

== ENCOUNTER 2024-02-28 13:12 | Outpatient (CLI) | payer MEDICARE, OTHER ==
[2024-02-28] MEDS: ALBUTEROL 1 PUFF INH STA (17:19)
== END 2024-02-28 13:13 | disposition home or self-care (01) ==
LOC: RT 13:12
PROVIDERS: ATTEND Physician Assistant
DX: R06.09 Other forms of dyspnea (principal)
CPT/HCPCS: 94060; 94727; 94729

== ENCOUNTER 2024-05-28 09:12 | Outpatient (CLI) | payer MEDICARE, OTHER | END 2024-05-28 09:13 | disposition home or self-care (01) | LOC: DI 09:12 | PROVIDERS: ATTEND Physician Assistant | DX: R06.09 Other forms of dyspnea (principal) | CPT/HCPCS: 93307 ==